=== PATIENT | male | born 1935 | race Hispanic/Latino ===

== ENCOUNTER 2018-08-10 05:41 | Inpatient (IN) | payer MEDICARE ==
[2018-08-05 10:55] LABS: Basophils % (Auto) 0.6 % (0.0-1.8); Eosinophils # (Auto) 0.1 K/mm3 (0.0-0.4); Eosinophils % (Auto) 2.6 % (0.0-4.3); Hematocrit 42.7 % (35.5-45.6); Lymphocytes # (Auto) 1.4 K/mm3 (1.2-5.4); Lymphocytes % (Auto) 35.6 % (13.4-35.0); Mean Corpuscular HGB Conc 33 % (32-34); Mean Corpuscular Volume 92 fl (84-94); Monocytes # (Auto) 0.4 K/mm3 (0.0-0.8); Monocytes % (Auto) 10.3 % (0.0-7.3); Platelet Count 105 K/mm3 (140-440); Red Blood Count 4.66 M/mm3 (3.65-5.03); Red Cell Distribution Width 14.9 % (13.2-15.2)
[2018-08-05 11:10] LABS: Calcium 9.1 mg/dL (8.4-10.2)
[2018-08-10] MEDS ORDERED: NACL 0.9% 1000 ML 1,000 ML IV SCH ×2 (06:00→13:00)
[2018-08-10] MEDS ORDERED: ANCEF/STERILE WATER 2 GM/20 ML 2 GM/20 ML SYRINGE IV NR (06:00)
[2018-08-10] MEDS ORDERED: NACL BACTERIOSTATIC INFILTRATI ONE (06:28)
[2018-08-10] MEDS ORDERED: XYLOCAINE MPF 2% ONE (06:56)
[2018-08-10] MEDS ORDERED: SUBLIMAZE ONE ×2 (06:56→09:24)
[2018-08-10] MEDS ORDERED: ZEMURON IV ONE (06:56)
[2018-08-10] MEDS ORDERED: DIPRIVAN 10 MG/ML IV ONE (06:57)
[2018-08-10] MEDS ORDERED: MARCAINE 0.5% INFILTRATI ONE ×3 (07:26→09:31)
[2018-08-10] MEDS ORDERED: PAPAVERINE ONE (07:26)
[2018-08-10] MEDS ORDERED: PROTAMINE SULFATE ONE (07:26)
[2018-08-10] MEDS ORDERED: XYLOCAINE 1% MPF 5 mL ONE (07:27)
[2018-08-10] MEDS ORDERED: NACL 0.9% 500 ML 500 ML ONE (07:27)
[2018-08-10] MEDS ORDERED: HEPARIN 10,000 UNITS/10 ML ONE (07:27)
[2018-08-10] MEDS ORDERED: NEO SYNEPHRINE ONE ×2 (07:30→10:49)
--- NOTE | 2018-08-10 08:22 | Anesthesia Consultation ---
Anesthesia Consult and Med Hx Date of service: 08/10/18 - Airway Anesthetic Teeth Evaluation: Good ROM Head & Neck: Adequate Mental/Hyoid Distance: Adequate Mallampati Class: Class II Intubation Access Assessment: Probably Good - Pulmonary Exam CTA: Yes - Cardiac Exam Cardiac Exam: RRR - Pre-Operative Health Status ASA Pre-Surgery Classification: ASA3 Proposed Anesthetic Plan: General - Pulmonary Hx Smoking: Yes (quit 40yrs ago) Hx Asthma: No Hx Respiratory Symptoms: No COPD: No Hx Sleep Apnea: No - Cardiovascular System Hx Hypertension: Yes Hx Coronary Artery Disease: Yes (s/p stents 2017) Hx Heart Attack/AMI: Yes (remote hx in perioperative setting now s/p 4-vessel CABG) Hx Cardia Arrhythmia: Yes (hx a-fib on warfarin) Hx Pacemaker: No Hx Internal Defibrillator: No - Central Nervous System Hx Seizures: No CVA: No Hx Back Pain: Yes Hx Psychiatric Problems: Yes (depression) - Gastrointestinal Hx Gastroesophageal Reflux Disease: Yes (asymptomatic today) - Endocrine Hx Renal Disease: Yes (CKD) Hx Liver Disease: No Hx Insulin Dependent Diabetes: Yes (previously on insulin but no longer on DM meds) Hx Non-Insulin Dependent Diabetes: No Hx Thyroid Disease: No - Hematic Hx Anemia: No - Other Systems Hx Cancer: Yes (hx prostate cancer) Hx Obesity: Yes - Additional Comments Anesthesia Medical History Comments: No hx anesthetic complications. No cardiac symptoms since stent placement in 2016. Last dose coumadin 3 days ago; PT/INR pending. Plan GETA pre-induction a-line. SBP goal >160 while clamped.
[2018-08-10] MEDS ORDERED: LEVOPHED IV ONE (08:23)
[2018-08-10 08:25] LABS: INR 2.12 (0.87-1.13)
--- NOTE | 2018-08-10 08:25 | Anesthesia Day of Surgery ---
Anesthesia Day of Surgery - Day of Surgery Patient Examined: Yes Patient H&P Reviewed: Yes Patient is NPO: Yes Beta Blockers: Yes
[2018-08-10] MEDS ORDERED: TRIDIL DRIP 50MG/250ML 50 MG/250 ML BOTTLE IV SCH (08:30)
[2018-08-10] MEDS ORDERED: DILAUDID IV PRN ×2 (08:30→15:56)
[2018-08-10] MEDS ORDERED: NACL 0.9% IR ONE (09:31)
[2018-08-10] MEDS ORDERED: HEPARIN 10,000 UNITS/10 ML 2,000 UNIT in NACL 0.9% 500 ML 500 ML IR ONE (09:31)
[2018-08-10] MEDS ORDERED: NACL 0.9% 200 ML ONE ×2 (09:32→11:08)
[2018-08-10] MEDS ORDERED: DILAUDID ONE (11:08)
--- NOTE | 2018-08-10 12:39 | Operative Report ---
Operative Report Operative Report: Date of procedure: 08/10/2018 Pre-operative diagnosis: Left carotid stenosis possibly symptomatic Post-operative diagnosis: Same Procedure name(s): Left carotid end arterectomy, Dacron patch angioplasty, intraoperative duplex scan Surgeon: Ismael Moore MD Head Of Academic Technology: Robbin Jaeger PA-C Anesthesia: Gen. EBL: 100 mL Specimen(s): Plaque Complications: None Findings: Extensive heavily calcified preocclusive stenosis of the proximal left internal carotid artery with fresh thrombus on several ulcerated areas. Excellent backbleeding therefore no shunt utilized. Intraoperative duplex shows no loose debris and complete resolution of high-grade stenosis and elevated velocities. Patient alert moving all 4 extremities in the recovery room. Procedure: Patient in the supine position after adequate levels of general endotracheal anesthesia was obtained the patient's head was rotated to the right and the left anterior neck was prepped and draped using standard sterile technique. A standard anterior sternocleidomastoid incision was made and carried down through the subcutaneous tissue the dissection was then carried anterior to the sternocleidomastoid through the platysma and a dissection plane was developed until the carotid sheath was encountered. The sheath was then entered and the jugular vein were swept laterally. The facial vein was divided. Sequentially the common carotid external carotid and then the internal and external carotid arteries were delineated from the surrounding tissue and encircled using vessel loops. The hypoglossal nerve was identified. The patient was then heparinized and after appropriate delay the vessels were occluded. Dissection was carried distally as there was an obvious posterior calcified tongue of plaque that extended distally. A longitudinal arteriotomy was then made in the distal common and extended through the internal carotid artery plaque. Backbleeding was assessed and was felt to be adequate therefore no shunt was used. A high grade carotid stenosis was encountered with a large macro ulceration and relatively fresh thrombus on its surface. A standard endarterectomy including an external eversion endarterectomy was performed. Loose debris was removed. The arteriotomy was then closed using a dacryon patch,double tapered configuration, four needle technique. Prior to completion of the suture line, antegrade and retrograde flushing was performed. The suture line was then completed and air was evacuated by retrograde ICA filling. The ICA was reoccluded and antegrade flow was initially established into the external carotid artery. It was subsequently released to the ICA. Patient tolerated declamping without difficulty. Hemostasis was obtained using Quick clot, protamine, floseal, and counterpressure. Intraoperative duplex scan was performed which showed excellent antegrade flow, complete resolution of the high-grade velocities and no loose debris. The incision was then blocked using 10 mL of Marcaine. The incision was then closed using 3-0 Vicryl subcutaneous and 4-0 Monocryl subcuticular. The skin was then reapproximated using Dermabond. Patient was then returned to the supine position and extubated and returned to the recovery room in a stable condition having tolerated the procedure well. Sponge and needle counts were correct.
[2018-08-10] MEDS ORDERED: MORPHINE IV PRN ×2 (12:45)
[2018-08-10] MEDS ORDERED: D50W (25GM) Syringe IV PRN (12:45)
[2018-08-10] MEDS ORDERED: ZOFRAN IV PRN (12:45)
[2018-08-10] MEDS ORDERED: NORCO 5/325 PO PRN (12:45)
[2018-08-10] MEDS ORDERED: NARCAN 0.4 MG/1 ML IV PRN (12:45)
[2018-08-10] MEDS ORDERED: INTROPIN DRIP 800 MG/D5W 250 ML 800 MG/250 ML BAG IV SCH (13:00)
[2018-08-10] MEDS ORDERED: NIPRIDE 50 MG in D5W 248 ML IV SCH (13:00)
[2018-08-10 13:11] LABS: Basophils % (Auto) 0.5 % (0.0-1.8); Eosinophils # (Auto) 0.1 K/mm3 (0.0-0.4); Eosinophils % (Auto) 2.4 % (0.0-4.3); Hematocrit 38.6 % (35.5-45.6); Hemoglobin 12.5 gm/dl (11.8-15.2); Lymphocytes # (Auto) 2.1 K/mm3 (1.2-5.4); Lymphocytes % (Auto) 48.6 % (13.4-35.0); Mean Corpuscular HGB Conc 32 % (32-34); Mean Corpuscular Volume 90 fl (84-94); Monocytes # (Auto) 0.4 K/mm3 (0.0-0.8); Monocytes % (Auto) 9.8 % (0.0-7.3); Platelet Count 104 K/mm3 (140-440); Red Blood Count 4.28 M/mm3 (3.65-5.03); Red Cell Distribution Width 14.8 % (13.2-15.2)
[2018-08-10 13:33] LABS: Calcium 7.9 mg/dL (8.4-10.2)
--- NOTE | 2018-08-10 14:40 | Vascular Lab Report ---
FINAL REPORT EXAM: US CAROTID DUPLEX HISTORY: S/P LT.CAROTID ENDARTERECTOMY. F/U LT.CAROTID ARTERY STENOSIS INTRA-OP. TECHNIQUE: Grayscale and color spectral Doppler ultrasound imaging of the left internal carotid isabell ry was performed. PRIORS: None. FINDINGS: Normal color flow and waveforms were seen within the left internal carotid artery. Peak systolic [place] of the proximal left internal carotid artery is 30 centimeters/second. End-diastolic velocity is 9 centimeters/second. IMPRESSION: Patent proximal left internal carotid artery.
[2018-08-10] MEDS ORDERED: AMBIEN PO PRN (15:16)
[2018-08-10] MEDS: ATIVAN PO SCH ×3 (16:20→21:43)
[2018-08-10] MEDS: ANCEF/NS 1 GM/50 ML 1 GM/50 ML BAG IV SCH ×2 (16:53→21:21)
--- NOTE | 2018-08-10 16:54 | Post Anesthesia Evaluation ---
- Post Anesthesia Evaluation Patient Participated: Yes Airway Patent: Yes Stable Respiratory Function: Yes Nausea/Vomiting: No Temp > 96.8F: Yes Pain Manageable: Yes Adequeate Hydration: Yes Anesthesia Complications: No Other Comments: Patient following commands and moving all extremities immediately post-extubation and consistently while in PACU. No evidence of neurologic deficit at time of transfer to ICU.
[2018-08-10] MEDS: HumuLIN R SUB-Q SCH ×2 (18:36→21:44)
[2018-08-10] MEDS: COLACE PO SCH (21:43)
[2018-08-10] MEDS: TRICOR PO SCH (21:43)
[2018-08-10] MEDS ORDERED: ZOLPIDEM 10 MG PO SCH (22:00)
[2018-08-11] MEDS: HumuLIN R SUB-Q SCH ×2 (08:49→12:00)
[2018-08-11] MEDS ORDERED: LASIX PO SCH (10:00)
[2018-08-11] MEDS ORDERED: AMARYL PO SCH (10:00)
[2018-08-11] MEDS ORDERED: LOVENOX SUB-Q SCH (10:00)
[2018-08-11] MEDS ORDERED: LOPRESSOR PO SCH (10:00)
[2018-08-11] MEDS ORDERED: ZYLOPRIM PO SCH (10:00)
[2018-08-11] MEDS ORDERED: PRAVACHOL PO SCH (10:00)
--- NOTE | 2018-08-11 10:03 | Consultation ---
History of Present Illness Consult date: 08/11/18 Requesting physician: BRET GAMINO Reason for consult: other (S/P Carotid End Areterectomy) Medications and Allergies Allergies Allergy/AdvReac Type Severity Reaction Status Date / Time morphine Allergy Itching Verified 08/03/18 15:26 Sulfa (Sulfonamide Allergy Unknown Verified 08/03/18 15:26 Antibiotics) Home Medications Medication Instructions Recorded Confirmed Last Taken Type Allopurinol 100 mg PO DAILY 08/05/18 08/05/18 08/09/18 History Fenofibrate Nanocrystallized 145 mg PO BID 08/05/18 08/05/18 08/09/18 History [Fenofibrate] Furosemide [Lasix TAB] 20 mg PO DAILY 08/05/18 08/05/18 08/09/18 History Glimepiride [Amaryl] 2 mg PO DAILY 08/05/18 08/05/18 08/09/18 History LORazepam [Ativan] 1 mg PO BID 08/05/18 08/05/18 08/09/18 History Metoprolol [Lopressor TAB] 50 mg PO DAILY 08/05/18 08/10/18 08/10/18 05:00 Hist ory Pravastatin [Pravachol] 40 mg PO DAILY 08/05/18 08/05/18 08/09/18 History Warfarin Sodium 3 mg PO QWEEK 08/05/18 08/05/18 08/07/18 History Warfarin Sodium 4.5 mg PO 6XW 08/05/18 08/05/18 08/07/18 History Zolpidem [Ambien] 10 mg PO HS 08/05/18 08/05/18 08/09/18 History Active Meds: Active Medications Acetaminophen/Hydrocodone Bitart ([place] 5/325) 1 each PO Q6H PRN PRN Reason: Pain, Moderate (4-6) Last Admin: 08/10/18 15:26 Dose: 1 each Documented by: Allopurinol (Zyloprim) 100 mg PO DAILY [facility] Dextrose (D50w (25gm) Syringe) 50 ml IV PRN PRN PRN Reason: Hypoglycemia Docusate Sodium (Colace) 100 mg PO BID [facility] Last Admin: 08/10/18 21:43 Dose: 100 mg Documented by: Enoxaparin Sodium (Lovenox) 40 mg SUB-Q QDAY [facility] Fenofibrate (Tricor) 145 mg PO BID [facility] Last Admin: 08/10/18 21:43 Dose: 145 mg Documented by: Furosemide (Lasix) 20 mg PO DAILY [facility] Glimepiride (Amaryl) 2 mg PO DAILY [facility] Hydromorphone HCl (Dilaudid) 0.5 mg IV Q3H PRN PRN Reason: Pain , Severe (7-10) Last Admin: 08/10/18 16:20 Dose: 0.5 mg Documented by: Sodium Chloride (Nacl 0.9% 1000 Ml) 1,000 mls @ 42 mls/hr IV DIRECT [facility] Last Admin: 08/10/18 06:50 Dose: 42 mls/hr Documented by: Dopamine HCl/Dextrose (Intropin Drip 800 Mg/D5w 250 Ml) 800 mg in 250 mls @ 3.861 mls/hr IV TITR [facility]; Protocol Sodium Nitroprusside 50 mg/ (Dextrose) 250 mls @ 7.72 mls/hr IV TITR [facility]; Protocol Insulin Human Regular (Humulin R) 0 units SUB-Q ACHS [facility]; Protocol Last Admin: 08/11/18 08:49 Dose: 1 units Documented by: Lorazepam (Ativan) 1 mg PO BID [facility] Last Admin: 08/10/18 21:43 Dose: 1 mg Documented by: Metoprolol Tartrate (Lopressor) 50 mg PO DAILY [facility] Naloxone HCl (Narcan 0.4 Mg/1 Ml) 0.1 mg IV Q2MIN PRN PRN Reason: Res Rate </= 8 or 02 SAT < 92% Ondansetron HCl (Zofran) 4 mg IV Q8H PRN PRN Reason: Nausea And Vomiting Last Admin: 08/10/18 16:19 Dose: 4 mg Documented by: Pravastatin Sodium (Pravachol) 40 mg PO DAILY [facility] Zolpidem Tartrate (Ambien) 10 mg PO QHS PRN PRN Reason: Insomnia Physical Examination Vital signs: Vital Signs Temp Pulse Resp BP Pulse Ox 97.2 F L 76 20 142/79 98 08/05/18 10:15 08/05/18 10:15 08/05/18 10:15 08/05/18 10:15 08/05/18 10:15 Results - Laboratory Findings CBC and BMP: 08/10/18 13:00 08/10/18 13:00 PT/INR, D-dimer PT 24.1 Sec. (12.2-14.9) H 08/10/18 07:50 INR 2.12 (0.87-1.13) H 08/10/18 07:50 Abnormal lab findings: Abnormal Labs 08/05/18 08/05/18 08/10/18 10:25 10:25 06:56 WBC 4.1 L Plt Count 105 L Lymph % (Auto) 35.6 H [place] % (Auto) 10.3 H Seg Neutrophils % Seg Neutrophils # PT INR BUN 21 H Creatinine 1.6 H Glucose 165 H POC Glucose 138 H Calcium 08/10/18 08/10/18 08/10/18 07:50 13:00 13:00 WBC 4.4 L Plt Count 104 L Lymph % (Auto) 48.6 H [place] % (Auto) 9.8 H Seg Neutrophils % 38.7 L Seg Neutrophils # 1.7 L PT 24.1 H INR 2.12 H BUN 23 H Creatinine 1.6 H Glucose 126 H POC Glucose Calcium 7.9 L 08/10/18 08/10/18 08/11/18 16:51 21:37 08:31 WBC Plt Count Lymph % (Auto) [place] % (Auto) Seg Neutrophils % Seg Neutrophils # PT INR BUN Creatinine Glucose POC Glucose 186 H 161 H 152 H Calcium
--- NOTE | 2018-08-11 10:21 | Consultation ---
History of Present Illness Consult date: 08/11/18 Requesting physician: MICHAELA REYNOLDS Consult reason: known to you, post op evaluation History of present illness: The pt is an 83 YO male with a past medical history of paroxysmal atrial fibrillation, anticoagulated with coumadin, CAD s/p CABG, carotid stenosis, HTN, DM, HLP, CKD, PVD, abdominal aortic aneurysm. He is followed in our office by Dr. Amalia Alegria. He presented for scheduled left CEA and successfully underwent t his surgery yesterday. Cardiology has been consulted for post-op evaluation and recommendations regarding continuation of snf systemic AC. Pt denies any current cardiac complaints. Past History Past Medical History: atrial fib, CAD, diabetes, DVT, hypertension, hyperlipidemia, other (CKD, PVD) Past Surgical History: CABG Medications and Allergies Allergies Allergy/AdvReac Type Severity Reaction Status Date / Time morphine Allergy Itching Verified 08/03/18 15:26 Sulfa (Sulfonamide Allergy Unknown Verified 08/03/18 15:26 Antibiotics) Home Medications Medication Instructions Recorded Confirmed Last Taken Type Allopurinol 100 mg PO DAILY 08/05/18 08/05/18 08/09/18 History Fenofibrate Nanocrystallized 145 mg PO BID 08/05/18 08/05/18 08/09/18 History [Fenofibrate] Furosemide [Lasix TAB] 20 mg PO DAILY 08/05/18 08/05/18 08/09/18 History Glimepiride [Amaryl] 2 mg PO DAILY 08/05/18 08/05/18 08/09/18 History LORazepam [Ativan] 1 mg PO BID 08/05/18 08/05/18 08/09/18 History Metoprolol [Lopressor TAB] 50 mg PO DAILY 08/05/18 08/10/18 08/10/18 05:00 History Pravastatin [Pravachol] 40 mg PO DAILY 08/05/18 08/05/18 08/09/18 History Warfarin Sodium 3 mg PO QWEEK 08/05/18 08/05/18 08/07/18 History Warfarin Sodium 4.5 mg PO 6XW 08/05/18 08/05/18 08/07/18 History Zolpidem [Ambien] 10 mg PO HS 08/05/18 08/05/18 08/09/18 History Clopidogrel Bisulfate [Plavix] 75 mg PO DAILY #30 tablet 08/11/18 Unknown Rx HYDROcodone/APAP 5-325 [[place] 1 each PO Q6HR PRN #28 tablet 08/11/18 Unknown Rx 5/325 mg] Active Meds: Active Medications Acetaminophen/Hydrocodone Bitart ([place] 5/325) 1 each PO Q6H PRN PRN Reason: Pain, Moderate (4-6) Last Admin: 08/10/18 15:26 Dose: 1 each Documented by: Allopurinol (Zyloprim) 100 mg PO DAILY [facility] Dextrose (D50w (25gm) Syringe) 50 ml IV PRN PRN PRN Reason: Hypoglycemia Docusate Sodium (Colace) 100 mg PO BID [facility] Last Admin: 08/10/18 21:43 Dose: 100 mg Documented by: Enoxaparin Sodium (Lovenox) 40 mg SUB-Q QDAY [facility] Fenofibrate (Tricor) 145 mg PO BID [facility] Last Admin: 08/10/18 21:43 Dose: 145 mg Documented by: Furosemide (Lasix) 20 mg PO DAILY [facility] Glimepiride (Amaryl) 2 mg PO DAILY [facility] Hydromorphone HCl (Dilaudid) 0.5 mg IV Q3H PRN PRN Reason: Pain , Severe (7-10) Last Admin: 08/10/18 16:20 Dose: 0.5 mg Documented by: Sodium Chloride (Nacl 0.9% 1000 Ml) 1,000 mls @ 42 mls/hr IV DIRECT [facility] Last Admin: 08/10/18 06:50 Dose: 42 mls/hr Documented by: Dopamine HCl/Dextrose (Intropin Drip 800 Mg/D5w 250 Ml) 800 mg in 250 mls @ 3.861 mls/hr IV TITR [facility]; Protocol Sodium Nitroprusside 50 mg/ (Dextrose) 250 mls @ 7.72 mls/hr IV TITR [facility]; Protocol Insulin Human Regular (Humulin R) 0 units SUB-Q ACHS [facility]; Protocol Last Admin: 08/11/18 08:49 Dose: 1 units Documented by: Lorazepam (Ativan) 1 mg PO BID [facility] Last Admin: 08/10/18 21:43 Dose: 1 mg Documented by: Metoprolol Tartrate (Lopressor) 50 mg PO DAILY [facility] Naloxone HCl (Narcan 0.4 Mg/1 Ml) 0.1 mg IV Q2MIN PRN PRN Reason: Res Rate </= 8 or 02 SAT < 92% Ondansetron HCl (Zofran) 4 mg IV Q8H PRN PRN Reason: Nausea And Vomiting Last Admin: 08/10/18 16:19 Dose: 4 mg Documented by: Pravastatin Sodium (Pravachol) 40 mg PO DAILY [facility] Zolpidem Tartrate (Ambien) 10 mg PO QHS PRN PRN Reason: Insomnia Review of Systems All systems: negative (no current complaints) Physical Examination Vital Signs Temp Pulse Resp BP Pulse Ox 97.2 F L 76 20 142/79 98 08/05/18 10:15 08/05/18 10:15 08/05/18 10:15 08/05/18 10:15 08/05/18 10:15 General appearance: no acute distress HEENT: Positive: PERRL, Normocephaly, Mucus Membranes Moist Neck: Positive: neck supple, trachea midline Cardiac: Positive: irregularly irregular, S1/S2 Lungs: Positive: Decreased Breath Sounds Neuro: Positive: Grossly Intact Abdomen: Positive: Soft. Negative: Tender Skin: Positive: Other (left CEA site c/d/i). Negative: Rash Musculoskeletal: No Pain Extremities: Absent: edema Results 08/10/18 13:00 08/10/18 13:00 CBC 08/10/18 Range/Units 13:00 WBC 4.4 L (4.5-11.0) K/mm3 RBC 4.28 (3.65-5.03) M/mm3 Hgb 12.5 (11.8-15.2) gm/dl Hct 38.6 (35.5-45.6) % Plt Count 104 L (140-440) K/mm3 Lymph # 2.1 (1.2-5.4) K/mm3 [place] # 0.4 (0.0-0.8) K/mm3 Eos # 0.1 (0.0-0.4) K/mm3 Baso # 0.0 (0.0-0.1) K/mm3 Comprehensive Metabolic Panel 08/10/18 Range/Units 13:00 Sodium 140 (137-145) mmol/L Potassium 4.2 (3.6-5.0) mmol/L Chloride 105.3 (98-107) mmol/L Carbon Dioxide 23 (22-30) mmol/L BUN 23 H (9-20) mg/dL Creatinine 1.6 H (0.8-1.5) mg/dL Glucose 126 H (75-100) mg/dL Calcium 7.9 L (8.4-10.2) mg/dL - Imaging and Cardiology EKG: report reviewed, image reviewed EKG interpretations - Telemetry EKG Rhythm: Atrial Fibrillation - EKG Supraventricular dysrhythmia: atrial fibrillation Assessment and Plan Currently stable cardiac status. Per vascular surgery, initiation of Plavix is recommended, to continue Plavix for 6 months. May initiate Plavix and continue home cardiac regimen, including ASA 81mg daily and Coumadin with tx INR 2-3. D/w pt and he is agreeable to this plan. Pt instructed to notify Dr. Alegria of any s/s bleeding. Will plan to d/c Plavix after 6 months if okay per vascular surgery. Pt may discharge home from cardiology standpoint. Follow up in our [place] office with Dr. Amalia Alegria on 08/31/2018 @ 2:30PM. The patient has been seen in conjunction with Dr. Og who agrees with the assessment and plan of care. - Patient Problems (1) Carotid stenosis Current Visit: Yes Status: Chronic (2) S/P carotid endarterectomy Current Visit: Yes Status: Chronic (3) Paroxysmal atrial fibrillation Current Visit: Yes Status: Chronic (4) CAD (coronary artery disease) Current Visit: Yes Status: Chronic (5) S/P CABG (coronary artery bypass graft) Current Visit: Yes Status: Chronic (6) HTN (hypertension) Current Visit: Yes Status: Chronic (7) Hyperlipidemia Current Visit: Yes Status: Chronic (8) Diabetes Current Visit: Yes Status: Chronic (9) PVD (peripheral vascular disease) Current Visit: Yes Status: Chronic (10) Abdominal aortic aneurysm Current Visit: Yes Status: Chronic
[2018-08-11] MEDS: ATIVAN PO SCH (10:31)
[2018-08-11] MEDS: TRICOR PO SCH (10:36)
[2018-08-11] MEDS: COLACE PO SCH (11:17)
--- NOTE | 2018-08-11 11:22 | Progress Note ---
Subjective Date of service: 08/11/18 Principal diagnosis: carotid stenosis Interval history: He is 83 male s/p left CEA post op day 1. He denies pain currently describes a soreness to his incision. Also complaints of sore throat. Denies nausea or vomiting tolerating PO food and fluids well. Objective - Constitutional Vitals: Vital Signs - 12hr 08/10/18 08/10/18 08/11/18 23:30 23:46 00:00 Temperature 98.3 F Pulse Rate 88 90 76 Pulse Rate [ 63 Left Dorsalis Pedis] Respiratory 15 17 12 Rate Blood Pressure 96/45 96/45 111/54 O2 Sat by Pulse 98 99 100 Oximetry 08/11/18 08/11/18 08/11/18 00:15 00:30 00:45 Temperature Pulse Rate 83 82 78 Pulse Rate [ Left Dorsalis Pedis] Respiratory 11 L 15 12 Rate Blood Pressure 104/53 104/53 O2 Sat by Pulse 99 97 98 Oximetry 08/11/18 08/11/18 08/11/18 01:00 01:15 01:30 Temperature Pulse Rate 78 78 80 Pulse Rate [ Left Dorsalis Pedis] Respiratory 12 12 14 Rate Blood Pressure 96/43 96/43 108/47 O2 Sat by Pulse 97 99 97 Oximetry 08/11/18 08/11/18 08/11/18 01:45 02:00 02:15 Temperature Pulse Rate 89 78 76 Pulse Rate [ Left Dorsalis Pedis] Respiratory 13 15 13 Rate Blood Pressure 108/47 109/47 109/47 O2 Sat by Pulse 99 97 99 Oximetry 08/11/18 08/11/18 08/11/18 02:30 02:45 03:00 Temperature Pulse Rate 77 78 82 Pulse Rate [ Left Dorsalis Pedis] Respiratory 13 15 16 Rate Blood Pressure 101/44 101/44 112/58 O2 Sat by Pulse 96 99 100 Oximetry 08/11/18 08/11/18 08/11/18 03:15 03:30 03:45 Temperature Pulse Rate 76 78 78 Pulse Rate [ Left Dorsalis Pedis] Respiratory 15 17 15 Rate Blood Pressure 112/58 117/55 117/55 O2 Sat by Pulse 99 100 99 Oximetry 08/11/18 08/11/18 08/11/18 04:00 04:15 04:30 Temperature Pulse Rate 75 78 78 Pulse Rate [ 63 Left Dorsalis Pedis] Respiratory 13 14 12 Rate Blood Pressure 105/56 117/55 97/46 O2 Sat by Pulse 98 99 97 Oximetry 08/11/18 08/11/18 08/11/18 04:45 05:00 05:15 Temperature Pulse Rate 76 78 77 Pulse Rate [ Left Dorsalis Pedis] Respiratory 13 16 13 Rate Blood Pressure 105/56 107/42 97/46 O2 Sat by Pulse 98 98 100 Oximetry 08/11/18 08/11/18 08/11/18 05:30 05:45 06:00 Temperature 98.3 F Pulse Rate 76 76 72 Pulse Rate [ Left Dorsalis Pedis] Respiratory 14 14 15 Rate Blood Pressure 104/48 104/48 103/47 O2 Sat by Pulse 99 98 98 Oximetry 08/11/18 08/11/18 08/11/18 06:15 06:31 06:45 Temperature Pulse Rate 90 104 H 101 H Pulse Rate [ Left Dorsalis Pedis] Respiratory 17 13 13 Rate Blood Pressure 103/47 103/47 96/55 O2 Sat by Pulse 99 98 96 Oximetry 08/11/18 08/11/18 08/11/18 07:00 07:15 07:18 Temperature 98.7 F Pulse Rate 94 H 92 H Pulse Rate [ Left Dorsalis Pedis] Respiratory 14 17 Rate Blood Pressure 109/65 96/55 O2 Sat by Pulse 97 95 Oximetry 08/11/18 08/11/18 08/11/18 07:30 07:45 08:00 Temperature Pulse Rate 92 H 110 H 107 H Pulse Rate [ 108 H Left Dorsalis Pedis] Respiratory 17 22 18 Rate Blood Pressure 108/70 108/70 113/64 O2 Sat by Pulse 98 96 Oximetry 08/11/18 08/11/18 08/11/18 08:15 08:30 08:45 Temperature Pulse Rate 101 H 97 H 110 H Pulse Rate [ Left Dorsalis Pedis] Respiratory 18 18 14 Rate Blood Pressure 108/70 118/64 113/64 O2 Sat by Pulse 97 99 96 Oximetry 08/11/18 08/11/18 08/11/18 09:00 09:10 09:15 Temperature 98.7 F Pulse Rate 111 H 104 H Pulse Rate [ Left Dorsalis Pedis] Respiratory 17 18 Rate Blood Pressure 123/62 118/64 O2 Sat by Pulse 97 96 Oximetry General appearance: Present: obese, other - EENT ENT: hearing intact - Neck Neck: supple, normal ROM, other (left CEA incision intact dry no erythema or drainage) - Respiratory Respiratory effort: normal, other (nonlabored at rest) - Cardiovascular Rhythm: other (atrial fibrillation) Extremities: no ischemia, Full ROM - Integumentary Integumentary: warm, dry, normal turgor - Musculoskeletal Musculoskeletal: strength equal bilaterally - Neurologic Neurologic: CNII-XII intact, no focal deficits, moves all extremities, other (tongue midline) - Labs CBC & Chem 7: 08/10/18 13:00 08/10/18 13:00 Labs: Abnormal lab results 08/10/18 08/10/18 08/10/18 Range/Units 13:00 13:00 16:51 WBC 4.4 L (4.5-11.0) K/mm3 Plt Count 104 L (140-440) K/mm3 Lymph % (Auto) 48.6 H (13.4-35.0) % [place] % (Auto) 9.8 H (0.0-7.3) % Seg Neutrophils % 38.7 L (40.0-70.0) % Seg Neutrophils # 1.7 L (1.8-7.7) K/mm3 BUN 23 H (9-20) mg/dL Creatinine 1.6 H (0.8-1.5) mg/dL Glucose 126 H (75-100) mg/dL POC Glucose 186 H (70-105) Calcium 7.9 L (8.4-10.2) mg/dL 08/10/18 08/11/18 Range/Units 21:37 08:31 WBC (4.5-11.0) K/mm3 Plt Count (140-440) K/mm3 Lymph % (Auto) (13.4-35.0) % [place] % (Auto) (0.0-7.3) % Seg Neutrophils % (40.0-70.0) % Seg Neutrophils # (1.8-7.7) K/mm3 BUN (9-20) mg/dL Creatinine (0.8-1.5) mg/dL Glucose (75-100) mg/dL POC Glucose 161 H 152 H (70-105) Calcium (8.4-10.2) mg/dL Medications & Allergies - Medications Allergies/Adverse Reactions: Allergies morphine Allergy (Verified 08/03/18 15:26) Itching Sulfa (Sulfonamide Antibiotics) Allergy (Verified 08/03/18 15:26) Unknown Home Medications: Home Medications Medication Instructions Recorded Confirmed Last Taken Type Allopurinol 100 mg PO DAILY 08/05/18 08/05/18 08/09/18 History Fenofibrate Nanocrystallized 145 mg PO BID 08/05/18 08/05/18 08/09/18 History [Fenofibrate] Furosemide [Lasix TAB] 20 mg PO DAILY 08/05/18 08/05/18 08/09/18 History Glimepiride [Amaryl] 2 mg PO DAILY 08/05/18 08/05/18 08/09/18 History LORazepam [Ativan] 1 mg PO BID 08/05/18 08/05/18 08/09/18 History Metoprolol [Lopressor TAB] 50 mg PO DAILY 08/05/18 08/10/18 08/10/18 05:00 History Pravastatin [Pravachol] 40 mg PO DAILY 08/05/18 08/05/18 08/09/18 History Warfarin Sodium 3 mg PO QWEEK 08/05/18 08/05/18 08/07/18 History Warfarin Sodium 4.5 mg PO 6XW 08/05/18 08/05/18 08/07/18 History Zolpidem [Ambien] 10 mg PO HS 08/05/18 08/05/18 08/09/18 History Clopidogrel Bisulfate [Plavix] 75 mg PO DAILY #30 tablet 08/11/18 Unknown Rx HYDROcodone/APAP 5-325 [[place] 1 each PO Q6HR PRN #28 tablet 08/11/18 Unknown Rx 5/325 mg] Active Medications: Generic Name Dose Route Start Last Admin Trade Name Freq PRN Reason Stop Dose Admin Acetaminophen/Hydrocodone Bitart 1 each 08/10/18 12:45 08/10/18 15:26 [place] 5/325 PO 1 each Q6H PRN Administration Pain, Moderate (4-6) Allopurinol 100 mg 08/11/18 10:00 08/11/18 10:32 Zyloprim PO 100 mg DAILY CINDY Administration Dextrose 50 ml 08/10/18 12:45 D50w (25gm) Syringe IV PRN PRN Hypoglycemia Docusate Sodium 100 mg 08/10/18 22:00 08/10/18 21:43 Colace PO 100 mg BID CINDY Administration Fenofibrate 145 mg 08/10/18 22:00 08/11/18 10:36 Tricor PO 145 mg BID CINDY Administration Furosemide 20 mg 08/11/18 10:00 Lasix PO DAILY CINDY Glimepiride 2 mg 08/11/18 10:00 08/11/18 10:37 Amaryl PO 2 mg DAILY CINDY Administration Hydromorphone HCl 0.5 mg 08/10/18 15:56 08/10/18 16:20 Dilaudid IV 0.5 mg Q3H PRN Administration Pain , Severe (7-10) Sodium Chloride 1,000 mls @ 42 mls/hr 08/10/18 06:00 08/10/18 06:50 Nacl 0.9% 1000 Ml IV 42 mls/hr DIRECT CINDY Administration Dopamine HCl/Dextrose 800 mg in 250 mls @ 3.861 mls/hr 08/10/18 13:00 Intropin Drip 800 Mg/D5w 250 Ml IV TITR CINDY Protocol 2 MCG/KG/MIN Sodium Nitroprusside 50 mg/ 250 mls @ 7.72 mls/hr 08/10/18 13:00 Dextrose IV TITR CINDY Protocol 0.25 MCG/KG/MIN Insulin Human Regular 0 units 08/10/18 16:30 08/11/18 08:49 Humulin R SUB-Q 1 units ACHS CINDY Administration Protocol Lorazepam 1 mg 08/10/18 22:00 08/11/18 10:31 Ativan PO 1 mg BID CINDY Administration Metoprolol Tartrate 50 mg 08/11/18 10:00 Lopressor PO DAILY CINDY Naloxone HCl 0.1 mg 08/10/18 12:45 Narcan 0.4 Mg/1 Ml IV Q2MIN PRN Res Rate </= 8 or 02 SAT < 92% Ondansetron HCl 4 mg 08/10/18 12:45 08/10/18 16:19 Zofran IV 4 mg Q8H PRN Administration Nausea And Vomiting Pravastatin Sodium 40 mg 08/11/18 10:00 08/11/18 10:32 Pravachol PO 40 mg DAILY CINDY Administration Zolpidem Tartrate 10 mg 08/10/18 15:16 Ambien PO QHS PRN Insomnia
--- NOTE | 2018-08-11 11:41 | Short Stay Summary ---
Short Stay Documentation - History H&P: obtained from office Past Medical History: atrial fib, CAD, diabetes, DVT, hypertension, hyperlipidemia, other (CKD, PVD) Past Surgical History: CABG - Allergies and Medications Current Medications: Allergies morphine Allergy (Verified 08/03/18 15:26) Itching Sulfa (Sulfonamide Antibiotics) Allergy (Verified 08/03/18 15:26) Unknown Home Medications Medication Instructions Recorded Confirmed Last Taken Type Allopurinol 100 mg PO DAILY 08/05/18 08/05/18 08/09/18 History Fenofibrate Nanocrystallized 145 mg PO BID 08/05/18 08/05/18 08/09/18 History [Fenofibrate] Furosemide [Lasix TAB] 20 mg PO DAILY 08/05/18 08/05/18 08/09/18 History Glimepiride [Amaryl] 2 mg PO DAILY 08/05/18 08/05/18 08/09/18 History LORazepam [Ativan] 1 mg PO BID 08/05/18 08/05/18 08/09/18 History Metoprolol [Lopressor TAB] 50 mg PO DAILY 08/05/18 08/10/18 08/10/18 05:00 History Pravastatin [Pravachol] 40 mg PO DAILY 08/05/18 08/05/18 08/09/18 History Warfarin Sodium 3 mg PO QWEEK 08/05/18 08/05/18 08/07/18 History Warfarin Sodium 4.5 mg PO 6XW 08/05/18 08/05/18 08/07/18 History Zolpidem [Ambien] 10 mg PO HS 08/05/18 08/05/18 08/09/18 History Clopidogrel Bisulfate [Plavix] 75 mg PO DAILY #30 tablet 08/11/18 Unknown Rx HYDROcodone/APAP 5-325 [[place] 1 each PO Q6HR PRN #28 tablet 08/11/18 Unknown Rx 5/325 mg] Active Medications Acetaminophen/Hydrocodone Bitart ([place] 5/325) 1 each PO Q6H PRN PRN Reason: Pain, Moderate (4-6) Last Admin: 08/10/18 15:26 Dose: 1 each Documented by: Allopurinol (Zyloprim) 100 mg PO DAILY CINDY Last Admin: 08/11/18 10:32 Dose: 100 mg Documented by: Dextrose (D50w (25gm) Syringe) 50 ml IV PRN PRN PRN Reason: Hypoglycemia Docusate Sodium (Colace) 100 mg PO BID [facility] Last Admin: 08/11/18 11:17 Dose: 100 mg Documented by: Fenofibrate (Tricor) 145 mg PO BID [facility] Last Admin: 08/11/18 10:36 Dose: 145 mg Documented by: Furosemide (Lasix) 20 mg PO DAILY [facility] Last Admin: 08/11/18 11:19 Dose: 20 mg Documented by: Glimepiride (Amaryl) 2 mg PO DAILY [facility] Last Admin: 08/11/18 10:37 Dose: 2 mg Documented by: Hydromorphone HCl (Dilaudid) 0.5 mg IV Q3H PRN PRN Reason: Pain , Severe (7-10) Last Admin: 08/10/18 16:20 Dose: 0.5 mg Documented by: Sodium Chloride (Nacl 0.9% 1000 Ml) 1,000 mls @ 42 mls/hr IV DIRECT [facility] Last Admin: 08/10/18 06:50 Dose: 42 mls/hr Documented by: Dopamine HCl/Dextrose (Intropin Drip 800 Mg/D5w 250 Ml) 800 mg in 250 mls @ 3.861 mls/hr IV TITR CINDY; Protocol Sodium Nitroprusside 50 mg/ (Dextrose) 250 mls @ 7.72 mls/hr IV TITR [facility]; Protocol Insulin Human Regular (Humulin R) 0 units SUB-Q ACHS [facility]; Protocol Last Admin: 08/11/18 08:49 Dose: 1 units Documented by: Lorazepam (Ativan) 1 mg PO BID [facility] Last Admin: 08/11/18 10:31 Dose: 1 mg Documented by: Metoprolol Tartrate (Lopressor) 50 mg PO DAILY [facility] Last Admin: 08/11/18 11:18 Dose: 50 mg Documented by: Naloxone HCl (Narcan 0.4 Mg/1 Ml) 0.1 mg IV Q2MIN PRN PRN Reason: Res Rate </= 8 or 02 SAT < 92% Ondansetron HCl (Zofran) 4 mg IV Q8H PRN PRN Reason: Nausea And Vomiting Last Admin: 08/10/18 16:19 Dose: 4 mg Documented by: Pravastatin Sodium (Pravachol) 40 mg PO DAILY [facility] Last Admin: 08/11/18 10:32 Dose: 40 mg Documented by: Zolpidem Tartrate (Ambien) 10 mg PO QHS PRN PRN Reason: Insomnia - Physical exam Extremities: no ischemia, Full ROM - Brief post op/procedure progress note Procedure: Operative Report Operative Report: Date of procedure: 08/10/2018 Pre-operative diagnosis: Left carotid stenosis possibly symptomatic Post-operative diagnosis: Same Procedure name(s): Left carotid end arterectomy, Dacron patch angioplasty, intraoperative duplex scan Surgeon: Ismael Moore MD Frame Nailer: Robbin Jaeger PA-C Anesthesia: Gen. EBL: 100 mL Specimen(s): Plaque Complications: None Findings: Extensive heavily calcified preocclusive stenosis of the proximal left internal carotid artery with fresh thrombus on several ulcerated areas. Excellent backbleeding therefore no shunt utilized. Intraoperative duplex shows no loose debris and complete resolution of high-grade stenosis and elevated velocities. Patient alert moving all 4 extremities in the recovery room. - Disposition Condition at discharge: Stable Disposition: DC-01 TO HOME OR SELFCARE - Discharge Diagnoses (1) Carotid stenosis Status: Chronic Short Stay Discharge Plan Activity: advance as tolerated Weight Bearing Status: Weight Bear as Tolerated Diet: diabetic Wound: open to air, keep clean and dry Follow up with: BOYD VASQUEZ MD [Staff Physician] - 7 Days (Follow up in our [place] office with Dr. Amalia Alegria on 08/31/2018 @ 2:30PM. ) ISMAEL MOORE MD [Staff Physician] - 14 Days Prescriptions: Clopidogrel Bisulfate [Plavix] 75 mg PO DAILY #30 tablet HYDROcodone/APAP 5-325 [[place] 5/325 mg] 1 each PO Q6HR PRN #28 tablet PRN Reason: Pain, Moderate (4-6)
[2018-08-11 13:56] VITALS: BP 107/53
--- NOTE | 2018-08-11 14:45 | Event Note ---
Date: 08/11/18 Asked to see patient while obsereved in the ICU post CEA doing very well post-op; denies acute chest pains or palpitations No bleeding at operative site No N/V/F/C A&P: Already discharged home and appears clinically stable
== END 2018-08-11 14:30 | disposition home or self-care (01) | DRG 39 ==
LOC: 3A 05:41 → CC1 12:29
PROVIDERS: ADMIT Surgery Vascular Surgery; ATTEND Surgery Vascular Surgery
PROC: 03CL0ZZ Extirpation of Matter from Left Internal Carotid Artery, Open Approach (ICD-10-PCS; principal; 2018-08-10)
PROC: 03UL0JZ Supplement Left Internal Carotid Artery with Synthetic Substitute, Open Approach (ICD-10-PCS; 2018-08-10)
DX: I65.22 Occlusion and stenosis of left carotid artery (principal); I48.0 Paroxysmal atrial fibrillation; I25.10 Atherosclerotic heart disease of native coronary artery without angina pectoris; Z86.718 Personal history of other venous thrombosis and embolism; I12.9 Hypertensive chronic kidney disease with stage 1 through stage 4 chronic kidney disease, or unspecified chronic kidney disease; N18.9 Chronic kidney disease, unspecified; E11.22 Type 2 diabetes mellitus with diabetic chronic kidney disease; E11.51 Type 2 diabetes mellitus with diabetic peripheral angiopathy without gangrene; F32.9 Major depressive disorder, single episode, unspecified; E78.5 Hyperlipidemia, unspecified; I71.4 Abdominal aortic aneurysm, without rupture; K21.9 Gastro-esophageal reflux disease without esophagitis; E66.9 Obesity, unspecified; Z95.1 Presence of aortocoronary bypass graft; Z88.2 Allergy status to sulfonamides; Z88.5 Allergy status to narcotic agent; Z79.899 Other long term (current) drug therapy; Z79.01 Long term (current) use of anticoagulants; Z87.891 Personal history of nicotine dependence; I25.2 Old myocardial infarction; Z85.46 Personal history of malignant neoplasm of prostate; Z68.31 Body mass index [BMI] 31.0-31.9, adult
CPT/HCPCS: 36415; 36620; 80048; 82962; 85025; 85610; 88304; 88311; G0378; A9270-GY; C1768; J0690; J1170; J1644; J1815; J2370; J2405; J2440; J2704; J2720; J3010; J7030; J7040